=== PATIENT | male | born 1990 | race African-American/Black ===

== ENCOUNTER 2020-09-06 13:07 | Emergency (ER) | payer OTHER, SELFPAY ==
--- NOTE | 2020-09-06 13:14 | ED.GENADULT ---
HPI - General Adult General Chief complaint: General Medical Stated complaint: covid testing Time Seen by Provider: 09/06/20 13:14 Source: patient Mode of arrival: ambulatory Limitations: no limitations History of Present Illness HPI narrative: 30 yo male with possible work exposures doesn't feel like himself he's tired and has nausea requesting COVID test Location: abdomen Radiation: non-radiation Severity: mild Quality: other (feels queasy) Associated symptoms: fever/chills, loss of appetite, malaise and nausea/vomiting Related Data Previous Rx's Medication Instructions Recorded ondansetron 4 mg PO Q8H PRN #20 tab 09/06/20 Allergies Allergy/AdvReac Type Severity Reaction Status Date / Time Penicillins Allergy Unknown Verified 09/06/20 13:41 Review of Systems Review of Systems: Constitutional : no Fever, positive Chills, positive fatigue, positive Malaise ENT/Mouth : no sore throat, no runny nose Eyes: No Discharge Cardiovascular : No Chest Pain, No SOB Respiratory : No Cough, No Sputum Gastrointestinal : positive Nausea, No Vomiting, No Diarrhea, no pain Genitourinary : No Dysuria, No Urinary Frequency Musculoskeletal : positive Myalgia Skin : No rash Neuro : No Headache PMF Social History Social History (Updated 09/06/20 @ 13:26 by Marilyn Bashir DO) Smoking Status: Current some day smoker Use of substances other than those prescribed or required for medical reasons: No Advance Directives: No Advance Directives Information Provided: Yes Physical Exam Vital Signs: Vital Signs: Vital Signs Temp Pulse Resp BP Pulse Ox 09/06/20 13:35 99.1 F 85 18 149/71 H 98 Body Mass Index 25.9 Appearance: Alert. Oriented X3. No acute distress. Eyes: Pupils equal, round and reactive to light. ENT: Pharynx normal. Neck: Normal inspection. Neck supple. CVS: Normal heart rate and rhythm. Pulses normal. Respiratory: No respiratory distress. Breath sounds normal. Abdomen: Soft and nontender. Skin: Skin warm and dry. Normal skin color. Normal skin turgor. Extremities: No lower extremity edema. No calf ttp Neuro: Oriented X 3. No motor deficit. No sensory deficit. Medical Decision Making MDM Narrative Medical decision making narrative: 30 yo male who works in [employer] just does not feel well some nausea will need zofran and COVID swab, not toxic, no hypoxic Discharge Plan Discharge Clinical Impression: Acute viral syndrome Patient Disposition: Home, Self-Care Instructions: Viral Syndrome (ED), COVID-19 (Coronavirus Disease 2019) (ED) Additional Instructions: you were tested for COVID we will call you with results in 2 to 4 days, wear a mask, socially distance Prescriptions: New ondansetron 4 mg tablet,disintegrating 4 mg PO Q8H PRN (Reason: nausea and vomiting) Qty: 20 RF: 0 Stand Alone Forms: Work/School Release
[2020-09-06 13:35] VITALS: BP 149/71; PULSE 85; RESP 18; TEMP 37.3; O2SAT 98; BMI 25.9
== END 2020-09-06 14:06 | disposition home or self-care (01) ==
PROVIDERS: Emergency Provider Emergency Medicine
DX: B34.9 Viral infection, unspecified (principal); Z20.828 Contact with and (suspected) exposure to other viral communicable diseases; R53.83 Other fatigue; F17.200 Nicotine dependence, unspecified, uncomplicated
CPT/HCPCS: 87635; 99283